=== PATIENT | female | born 1975 | race Caucasian/White ===

== ENCOUNTER 2017-08-21 08:33 | Day surgery (SDC) | payer BC, MEDICAID ==
[2017-08-19 10:24] VITALS: BMI 23.8
[~2017-08-21 08:33] MED LIST: LACTATED RINGERS 1,000 ML IV SCH
[2017-08-21 09:00] VITALS: TEMP 97.5
[2017-08-21] MEDS ORDERED: LIDOCAINE 1% 20 ML VIAL (10MG/ML) FOR IV START INTRADERMA ONE (09:00)
[2017-08-21] MEDS ORDERED: ONDANSETRON 4 MG/2 ML VIAL IVP ONE (09:03)
[2017-08-21] MEDS ORDERED: LIDOCAINE 1% INJ 10MG/ML (20 ML MDV) ONE (09:27)
[2017-08-21] MEDS ORDERED: GLYCOPYRROLATE 0.2 MG/ML 2 ML VIAL ONE (09:27)
[2017-08-21] MEDS ORDERED: PROPOFOL 10 MG/ML 20 ML VIAL IV ONE (09:27)
--- NOTE | 2017-08-21 09:36 | P.PCN ---
Date of Procedure: 08/21/17 Procedure(s) Performed: BRIEF HISTORY: Patient is a 41-year-old, pleasant, female, scheduled for an upper endoscopy as part of evaluation of long-standing history of GERD and epigastric pain for the last 1 year duration. She is presently on Prilosec 20 mg twice daily as well as Carafate 1 g twice daily with some relief in her symptoms. She is scheduled for an upper endoscopy to rule out peptic and reflux disease.. PROCEDURE PERFORMED: Esophagogastroduodenoscopy with biopsy. PREOPERATIVE DIAGNOSIS: Long-standing history of GERD and epigastric pain. IV sedation per anesthesia. PROCEDURE: After informed consent was obtained, the patient was brought into the endoscopy unit. IV sedation was administered by Anesthesia under continuous monitoring. Initially the Olympus GIF-140 video endoscope was inserted into the mouth. Esophagus intubated without any difficulty. It was gradually advanced into the stomach and duodenum and carefully examined. The bulb and the second part of the duodenum appeared normal. The scope at this time was withdrawn to the stomach, adequately insufflated with air, and upon careful examination, mucosa of the antrum, had minimal erythema in the prepyloric area and biopsies were done from this area. The body, cardia and the fundus appeared normal. The scope was then withdrawn into the esophagus. The GE junction was located at 39 cm from the incisors. The esophagus appeared normal. There were no erosions or ulcerations seen and the patient tolerated the procedure well. IMPRESSION: 1. Antral gastritis. 2. Normal-appearing esophagus with no evidence of esophagitis, esophageal stricture or Juares's esophagus. RECOMMENDATIONS: The findings of this examination were discussed with the patient as well as a family. Her symptoms are suggestive of GERD and she may have a component of functional heartburn. For now I recommended that she continue with her current PPIs, Carafate and follow antireflux measures. She will also advised to follow with the biopsy results.
[2017-08-21 09:47] VITALS: RESP 18
[2017-08-21 09:59] VITALS: BP 117/81; PULSE 64
== END 2017-08-21 10:38 | disposition home or self-care (01) ==
LOC: ORWHC2ENDO 08:33
PROVIDERS: ATTEND Internal Medicine Gastroenterology
DX: K29.70 Gastritis, unspecified, without bleeding (principal); K21.0 Gastro-esophageal reflux disease with esophagitis; M06.9 Rheumatoid arthritis, unspecified; Z79.899 Other long term (current) drug therapy; Z88.2 Allergy status to sulfonamides
CPT/HCPCS: 81025; 88305; 43239; J2405; J2001; J2704

== ENCOUNTER → 2022-04-10 | Outpatient (CLI) | payer OTHER ==
--- NOTE | 2022-04-11 19:49 | MM ---
Reason for Exam: Screening (asymptomatic). Baseline mammogram. Patient History: Menarche at age 9. First Full-Term at age 21. Postmenopausal. Risk Values: Madai 5 year model risk: 0.9%. NCI Lifetime model risk: 9.1%. Prior Study Comparison: Patient's first Mammogram. No prior studies available for comparison. Tissue Density: The breast tissue is heterogeneously dense. This may lower the sensitivity of mammography. Findings: Analyzed By CAD. Asymmetric density superior right MLO view does not persist on 3-D images. No significant mass, suspicious microcalcification, or other discrete abnormality is seen. Overall Assessment: Benign, BI-RAD 2 Management: Screening Mammogram of both breasts in 1 year. 1. Patient should continue monthly self breast exams. 2. A clinical breast exam by your physician is recommended on an annual basis. 3. This exam should not preclude additional follow-up of suspicious palpable abnormalities. Electronically signed and approved by: Shey Dumont M.D. Radiologist
== END | disposition home or self-care (01) ==
LOC: RADMAMWWP 11:21
PROVIDERS: ATTEND Obstetrics & Gynecology
DX: Z12.31 Encounter for screening mammogram for malignant neoplasm of breast (principal); Z78.0 Asymptomatic menopausal state
CPT/HCPCS: 77063; 77067

== ENCOUNTER 2022-12-18 07:26 | Emergency (ER) | payer OTHER ==
[2022-12-18 07:45] VITALS: TEMP 98.6
[2022-12-18] MEDS ORDERED: MORPHINE SULFATE 2 MG/ML SYRINGE IVP STA (07:53)
[2022-12-18] MEDS ORDERED: KETOROLAC 15 MG/ML 1 ML VIAL IVP STA (07:53)
--- NOTE | 2022-12-18 08:00 | ED ---
Extremity Problem HPI - General Chief complaint: Extremity Problem,Nontraumatic Stated complaint: Left hip pain Time Seen by Provider: 12/18/22 07:45 Source: patient, RN notes reviewed Mode of arrival: ambulatory Limitations: no limitations - History of Present Illness Initial comments: This is a 47-year-old female who presents to the emergency department for left hip pain. States that yesterday she worked out in the morning. She went to sit at her desk and started to develop increasing pain to the left hip. Throughout the day the pain progressed. She tried taking tramadol with no relief in symptoms. Today she has had difficulty walking due to the pain. She has not had any injuries and other than working out, which she typically does, she did not do anything out of the ordinary. She does have a history of rheumatoid arthritis that is treated with injections. Denies any hx of similar symptoms in the past or problems like this as a result of the rheumatoid arthritis. Last night she started to vomit as well. Unsure if this is related to the pain or something else, however she does not have any abdominal pain. The pain is primarily in the left hip with some radiation into the lower back and down the thigh. Also states that the top of her thigh has started to feel somewhat numb. Denies any fevers, chills, sore throat, cough, dyspnea, chest pain, palpitations, abdominal pain, diarrhea, or headaches. MD Complaint: extremity pain Onset/Timin -: days(s) Location: left, lower extremity - Related Data Home Medications Medication Instructions Recorded Confirmed Biotin 1000 Mcg 1,000 mcg PO DAILY 08/19/17 08/21/17 Cholecalciferol [Vitamin D3] 1,000 unit PO DAILY 08/19/17 08/21/17 Escitalopram [Lexapro] 20 mg PO HS 08/19/17 08/21/17 Leucovorin Calcium 10 mg PO MO 08/19/17 08/21/17 Methotrexate/Pf [Otrexup 12.5 0.8 ml INJ VILLATORO 08/19/17 08/21/17 mg/0.4 ml Autoinj] Omeprazole [PriLOSEC] 20 mg PO AC-BID 08/19/17 08/21/17 norgestimate-ethinyl estradioL 1 each PO DAILY 08/19/17 08/21/17 [Rvc-Un-Syxkhhkg Tablet] Previous Rx's Medication Instructions Recorded HYDROcodone/APAP 7.5-325MG [[place] 1 tab PO Q6HR PRN 3 Days #12 tab 12/18/22 7.5-325] Ketorolac [Toradol] 10 mg PO Q6HR PRN #12 tab 12/18/22 Allergies Allergy/AdvReac Type Severity Reaction Status Date / Time adhesive tape Allergy Rash/Hives Verified 12/18/22 07:44 Sulfa (Sulfonamide Allergy Rash/Hives Verified 12/18/22 07:44 Antibiotics) Review of Systems ROS Statement: Those systems with pertinent positive or pertinent negative responses have been documented in the HPI. ROS Other: All systems not noted in ROS Statement are negative. Past Medical History Past Medical History: GERD/Reflux, Rheumatoid Arthritis (RA) Additional Past Medical History / Comment(s): STOMACH PAIN OFF AND ON FOR PAST YEAR History of Any Multi-Drug Resistant Organisms: None Reported Past Surgical History: Appendectomy Additional Past Surgical History / Comment(s): EGD. OVAIRIAN CYSTECTOMY Past Anesthesia/Blood Transfusion Reactions: Postoperative Nausea & Vomiting (PONV) Past Psychological History: Anxiety, Depression Smoking Status: Never smoker Past Alcohol Use History: None Reported Past Drug Use History: None Reported - Past Family History Mother Family Medical History: No Reported History General Exam Limitations: no limitations General appearance: alert, in distress Head exam: Present: atraumatic, normocephalic, normal inspection Respiratory exam: Present: normal lung sounds bilaterally. Absent: respiratory distress, wheezes, rales, rhonchi, stridor Cardiovascular Exam: Present: regular rate, normal rhythm, normal heart sounds. Absent: systolic murmur, diastolic murmur, rubs, gallop, clicks GI/Abdominal exam: Present: soft, normal bowel sounds. Absent: distended, tenderness, guarding, rebound, rigid Extremities exam: Present: other (Minor tenderness to palpation over the left greater trochanter. No overlying swelling, erythema, or ecchymosis. Limited passive range of motion secondary to pain. 2+ DP and PT pulses. Capillary refill less than 1 second.) Neurological exam: Present: alert, oriented X3, CN II-XII intact Psychiatric exam: Present: normal affect, normal mood Skin exam: Present: warm, dry, intact, normal color. Absent: rash Course Vital Signs 12/18/22 12/18/22 07:42 10:36 Temperature 98.6 F Pulse Rate 66 49 L Respiratory 18 16 Rate Blood Pressure 129/78 129/83 O2 Sat by Pulse 96 99 Oximetry Medical Decision Making - Medical Decision Making This is a 47-year-old female who presents to the emergency department for left hip pain. Was pt. sent in by a medical professional or institution? @ -No Did you speak to anyone other than the patient for history? @ -No Did you review nursing and triage notes? @ -Yes, and I agree, it is accurate with regards to the patient's symptoms. Were old charts reviewed? @ -No Differential Diagnosis? @ -Differential Hip Pain: Fracture, dislocation, osteoarthritis, rheumatoid arthritis, septic arthritis, gout, synovitis, piriformis syndrome, bursitis, arterial occlusion, DVT, femoroacetabular inpingement, labral tear, avascular necrosis, SI joint dysfunction, this is not meant to be an all-inclusive list. EKG interpreted by me (3pts min.)? @ -Not obtained X-rays interpreted by me (1pt min.)? @ -X-ray of the lumbar spine, left hip, and left femur obtained. My interpretation of all imaging identifies no acute fractures or dislocations. CT interpreted by me (1pt min.)? @ -Not obtained U/S interpreted by me (1pt. min.)? @ -Duplex ultrasound of the left lower extremity obtained. My interpretation identifies no evidence of a DVT. What testing was considered but not performed? (CT, X-rays, U/S, labs)? Why? @ -None What meds were considered but not given? Why? @ -None Did you discuss the management of the patient with other professionals? @ -No Did you reconcile home meds? @ -No Was smoking cessation discussed for >3mins.? @ -No Was critical care preformed (if so, how long)? @ -No Were there social determinants of health that impacted care today? How? (Homelessness, low income, unemployed, alcoholism, drug addiction, transportation, low edu. Level, literacy, decrease access to med. care, halfway, rehab)? @ -No Was there de-escalation of care discussed even if they declined? (Discuss DNR or withdrawal of care, Hospice)? @ -No What co-morbidities impacted this encounter? (DM, HTN, Smoking, COPD, CAD, Cancer, CVA, Hep., AIDS, mental health diagnosis, sleep apnea, morbid obesity)? @ -Rheumatoid arthritis Was patient admitted / discharged? @ -Discharged. We initially obtained x-rays of the lumbar spine, left hip, and left femur, revealing no acute findings. We then obtained a duplex ultrasound of the left lower extremity, also revealing no acute process. Toradol and morphine administered for pain, which was very beneficial. She was able to stand without much difficulty. Prescriptions for Toradol and [place] provided with dosing instructions reviewed. Patient is instructed to take the Toradol with Tylenol if needed and avoid any other sids-ure-emgkxpy anti-inflammatories such as ibuprofen with the Toradol. Also advised that the [place] can be sedating and she should avoid driving or operating machinery when taking this. Undiagnosed new problem with uncertain prognosis? @ -None Drug Therapy requiring intensive monitoring for toxicity (Heparin, Nitro, Insulin, Cardizem)? @ -None Were any procedures done? @ -None Diagnosis/symptom? @ -Left hip pain Acute, or Chronic, or Acute on Chronic? @ -Acute Uncomplicated (without systemic symptoms) or Complicated (systemic symptoms)? @ -Uncomplicated Side effects of treatment? @ -None Exacerbation, Progression, or Severe Exacerbation] @ -Not applicable Poses a threat to life or bodily function? @ -This is making it difficult to ambulate. Return precautions reviewed in depth, the patient is instructed to return to the emergency department with any new, worsening, or concerning symptoms. Patient verbalized understanding. This case was discussed in detail with the attending ED physician, Dr. Ivy. Presentation, findings, and treatment plan discussed in detail as well. - Radiology Data Radiology results: report reviewed, image reviewed Disposition Clinical Impression: Left hip pain Disposition: HOME SELF-CARE Instructions (If sedation given, give patient instructions): Hip Pain (ED) Additional Instructions: Return to the emergency department with any new, worsening, or concerning symptoms. Take the Toradol and Tylenol as needed for pain relief. Avoid taking any other hcoh-cea-xbdodjc anti-inflammatories such as ibuprofen with this. Take the [place] sparingly when your pain is the most severe and be aware that it may make you drowsy and you should avoid driving or operating machinery when taking this. Follow up with your primary care provider in 1-2 days. Prescriptions: HYDROcodone/APAP 7.5-325MG [[place] 7.5-325] 1 tab PO Q6HR PRN 3 Days #12 tab PRN Reason: Pain Ketorolac [Toradol] 10 mg PO Q6HR PRN #12 tab PRN Reason: Pain Is patient prescribed a controlled substance at d/c from ED?: Yes When asked, does pt state using other controlled substances?: No If prescribed controlled substance>3 days was MAPS reviewed?: Prescribed <3 Days Referrals: Maria L Tan MD [Primary Care Provider] - 1-2 days
--- NOTE | 2022-12-18 08:26 | XR ---
EXAMINATION TYPE: XR femur LT DATE OF EXAM: 12/18/2022 CLINICAL HISTORY: Pain TECHNIQUE: Two views of the left femur are obtained. COMPARISON: None FINDINGS: There is no acute fracture or dislocation seen in the left femur. There is mild superior n arrowing of the joint space. Calcification pelvis likely represent phleboliths.. The overlying soft tissue appears unremarkable. IMPRESSION: There is no acute fracture or dislocation in the left femur. Mild left hip arthropathy.
--- NOTE | 2022-12-18 08:26 | XR ---
EXAMINATION TYPE: XR Hip Complete LT DATE OF EXAM: 12/18/2022 COMPARISON: NONE HISTORY: Pain TECHNIQUE: 2 views submitted FINDINGS: There is no acute fracture or dislocation seen in the left femur. There is mild superior narrowing of the joint space. Calcification pelvis likely represent phleboliths.. The overlying soft tissue appe ars unremarkable. IMPRESSION: 1. No evidence of acute fracture or dislocation. 2. Mild left hip arthropathy.
--- NOTE | 2022-12-18 08:32 | XR ---
EXAM TYPE: LUMBAR SPINE X RAY SERIES COMPARISON: NONE HISTORY: Pain TECHNIQUE: 4 views are submitted. FINDINGS: Alignment is anatomic. The pedicles are intact. The transverse processes are intact. There is no s pondylolisthesis. Multilevel Schmorl's nodes are seen and there is moderate degenerative disc diseas e L3-L4. Anterior hypertrophic spurring. IMPRESSION: 1. Moderate degenerative disc disease L3-L4..
--- NOTE | 2022-12-18 08:53 | US ---
EXAMINATION TYPE: US venous doppler duplex LE LT DATE OF EXAM: 12/18/2022 8:41 AM COMPARISON: NONE CLINICAL INDICATION: Female, 47 years old with history of Left hip and thigh pain; hip pain SIDE PERFORMED: Left TECHNIQUE: The lower extremity deep venous system is examined utilizing real time linear array sonog eris with graded compression, doppler sonography and color-flow sonography. VESSELS IMAGED: Common Femoral Vein Deep Femoral Vein Greater Saphenous Vein * Femoral Vein Popliteal Vein Small Saphenous Vein * Proximal Calf Veins (* superficial vessels) Left Leg: Negative for DVT IMPRESSION: Grayscale, color doppler, spectral doppler imaging performed of the deep veins of the lo wer extremities. There is normal flow, compressibility, vascular waveforms.
[2022-12-18] MEDS ORDERED: methylPREDNISolone SOD SUCCI 125 MG/2 ML VIAL IM ONE (09:59)
[2022-12-18 10:37] VITALS: BP 129/83; PULSE 49; RESP 16
== END 2022-12-18 10:47 | disposition home or self-care (01) ==
LOC: EC 07:26
DX: M25.552 Pain in left hip (principal); K21.9 Gastro-esophageal reflux disease without esophagitis; F32.A Depression, unspecified; F41.9 Anxiety disorder, unspecified; Z79.899 Other long term (current) drug therapy; Z88.2 Allergy status to sulfonamides; Z91.09 Other allergy status, other than to drugs and biological substances
CPT/HCPCS: 72100; 73502; 73552; 93971; 99284; 96374; 96375; 96372; J2930; J2270; J1885

== ENCOUNTER → 2023-12-24 | Outpatient (CLI) | payer BC ==
--- NOTE | 2023-12-25 08:11 | MM ---
Reason for Exam: Screening (asymptomatic). Last mammogram was performed 1 year(s) and 8 month(s) ago. Patient History: Menarche at age 9. First Full-Term at age 21. Postmenopausal. Risk Values: Madai 5 year model risk: 0.9%. NCI Lifetime model risk: 8.8%. Prior Study Comparison: 04/10/2022 Bilateral MG 3D screening mammo w/cad, [facility] WITH [facility]. Tissue Density: The breasts are heterogeneously dense, which may obscure small masses. Findings: Analyzed By CAD. There is no suspicious group of microcalcifications or new suspicious mass in either breast. Overall Assessment: Benign, BI-RAD 2 Management: Screening Mammogram of both breasts in 1 year. . Patient should continue monthly self-breast exams. A clinical breast exam by your physician is recommended on an annual basis. This exam should not preclude additional follow-up of suspicious palpable abnormalities. Note on Madai scores and lifetime risk: 1. A Madai score greater than 3% is considered moderate risk. If this is the case, consider specialist referral to assess eligibility for a risk reducing agent. 2. If overall lifetime risk for the development of breast cancer is 20% or higher, the patient may qualify for future screening with alternating mammogram and breast MRI. Electronically signed and approved by: Caleb Stephen M.D. Radiologis
== END | disposition home or self-care (01) ==
LOC: RADMAMWWP 10:47
PROVIDERS: ATTEND Obstetrics & Gynecology
DX: Z12.31 Encounter for screening mammogram for malignant neoplasm of breast (principal); Z78.0 Asymptomatic menopausal state
CPT/HCPCS: 77063; 77067